=== PATIENT | female | born 1965 | race Caucasian/White ===

== ENCOUNTER → 2023-07-17 12:38 | Outpatient (REF) | payer BC, SELFPAY | LOC: HWRAD 12:38 | PROVIDERS: ATTENDING PHYSICIAN Nurse Practitioner Family; FAMILY PHYSICIAN Family Medicine | DX: R19.5 Other fecal abnormalities (principal) | CPT/HCPCS: 76700 ==

== ENCOUNTER → 2023-07-22 06:39 | Day surgery (SDC) | payer BC, SELFPAY | LOC: GI 06:39 | PROVIDERS: ATTENDING PHYSICIAN Internal Medicine; FAMILY PHYSICIAN Family Medicine | DX: Z12.11 Encounter for screening for malignant neoplasm of colon (principal); K52.832 Lymphocytic colitis; D12.0 Benign neoplasm of cecum; K64.9 Unspecified hemorrhoids; R19.4 Change in bowel habit; Z86.010 Personal history of colon polyps | CPT/HCPCS: 45380; 88305; 87324; 87449 ==